=== PATIENT | female | born 1985 | race Caucasian/White ===

== ENCOUNTER 2017-07-10 05:55 | Inpatient (IN) | payer BC ==
[2017-07-10 06:43] VITALS: BMI 28.8
[2017-07-10] MEDS ORDERED: Ibuprofen 800 MG TAB PO PRN (06:58)
[2017-07-10] MEDS ORDERED: Promethazine HCl 25 MG/ML VIAL IM PRN (06:58)
[2017-07-10] MEDS ORDERED: HYDROcodone/Acetaminophen 5/325 mg Tablet PO PRN ×2 (06:58)
[2017-07-10] MEDS ORDERED: Lidocaine 1% (PF) 30 ML VIAL SC PRN (06:58)
--- NOTE | 2017-07-10 07:03 | PDOC.LDHP ---
Labor and Delivery H&P HPI: 32 yo primip at 40.6 weeks who was scheduled for induction this pm, arrives with CTX. no LOF. Patient of Dr Lindy Perez. Dr Perez made aware of her arrival by me. Current gestational age (weeks): 40 (6) Dating criteria: last menstrual period Current complications: none Abnormal US findings: No Current medications: none Allergies/Adverse Reactions: Allergies Allergy/AdvReac Type Severity Reaction Status Date / Time azithromycin Allergy Verified 07/10/17 06:44 Social history: none - Physical Exam Vital signs reviewed and normal: yes Heart: RRR Abdomen: gravid FHT: category 1 [place] contractions every: Q5-7 minutes - Vaginal Exam cm dilated: 3 Effacement: 50% Station: -2 - Assessment L&D Assessment: term patient in labor - Plan Plan: admit to L&D, labor augmentation if indicated, informed consent obtained, other (DX: Late full term . Unknown GBS as record not in L&D. Dr Perez to send. For now, no GBS risk factors. Pain control. Admit, pitocin if needed.)
[2017-07-10] MEDS: Lactated Ringer's 1,000 ML IV SCH ×3 (07:30→15:51)
[2017-07-10 07:43] LABS: Hematocrit 38.9 % (36.0-47.0); Mean Platelet Volume 5.9 fL (7.4-10.4); Red Blood Cell (RBC) Count 4.34 mill/uL (4.20-5.40); White Blood Cell (WBC) Count 14.3 thou/uL (4.8-10.8)
[2017-07-10] MEDS ORDERED: Fentanyl 4 mcg/Marc 0.1% Cadd 100 ML ONE (08:43)
[2017-07-10] MEDS ORDERED: diphenhydrAMINE 50 MG/ML VIAL IVP PRN (09:24)
[2017-07-10] MEDS ORDERED: ePHEDrine/0.9% NaCl/PF SYRINGE 50 mg/10 ml SLOW IVP PRN (09:24)
[2017-07-10] MEDS ORDERED: Ondansetron HCl/PF 4 MG/2 ML Vial IVP PRN (09:24)
[2017-07-10] MEDS ORDERED: Lactated Ringer's 500 ML IV PRN (09:24)
[2017-07-10] MEDS ORDERED: Acetaminophen 325 MG TAB PO PRN (09:24)
[2017-07-10] MEDS ORDERED: Naloxone HCl 0.4 mg/ml Vial IVP PRN ×2 (09:24)
[2017-07-10] MEDS ORDERED: Eucerin (Mineral Oil/Petrolatum,White) 30 gm Jar TOP PRN (09:24)
[2017-07-10] MEDS ORDERED: Communication Order-Pharmacy FS SCH (09:30)
[2017-07-10] MEDS: Ondansetron HCl/PF 4 MG/2 ML Vial IVP PRN ×2 (09:46→16:36)
[2017-07-10] MEDS: LR 500 ML/Oxytocin 10 units 500 ML IV SCH ×2 (10:14→19:09)
[2017-07-10] MEDS: Fentanyl 4mcg/Marcaine 0.1% Cassette 100 ML EPIDURAL SCH ×2 (14:57→21:20)
[2017-07-10] MEDS: Promethazine HCl 25 MG/ML VIAL IM PRN ×2 (17:12→21:11)
[2017-07-10] MEDS ORDERED: Lidocaine 1% (PF) 30 ML VIAL ONE (23:09)
[2017-07-10] MEDS ORDERED: LR / Pitocin 40 units/1000 ml 1,000 ML ONE (23:09)
[2017-07-11] MEDS: LR / Pitocin 40 units/1000 ml 1,000 ML IV PRN ×2 (00:49→02:54)
[2017-07-11] MEDS ORDERED: Bupivacaine/Epinephrine 0.25% 30 ML VIAL ONE (01:00)
[2017-07-11] MEDS ORDERED: Lidocaine 2% PF 5 ML VIAL ONE (01:00)
[2017-07-11] MEDS ORDERED: ePHEDrine/0.9% NaCl/PF SYRINGE 50 mg/10 ml ONE (01:00)
[2017-07-11] MEDS ORDERED: Ibuprofen 800 MG TAB PO PRN (03:24)
[2017-07-11] MEDS ORDERED: HYDROcodone/Acetaminophen 5/325 mg Tablet PO PRN ×2 (03:24)
[2017-07-11] MEDS ORDERED: Lidocaine 1% (PF) 30 ML VIAL SC PRN (03:24)
[2017-07-11] MEDS ORDERED: Lanolin Ointment 7 GM TUBE TOP PRN (03:24)
[2017-07-11] MEDS ORDERED: Misoprostol 200 MCG TAB PR PRN (03:24)
[2017-07-11] MEDS ORDERED: Preparation H Ointment 28 GM TUBE PR PRN (03:24)
[2017-07-11] MEDS ORDERED: Milk Of Magnesia 30 ML UDCUP PO PRN (03:24)
[2017-07-11] MEDS ORDERED: LR / Pitocin 40 units/1000 ml 1,000 ML IV PRN (03:24)
[2017-07-11] MEDS ORDERED: Zolpidem Tartrate 5 MG TAB PO PRN (03:24)
[2017-07-11] MEDS ORDERED: Acetaminophen 500 MG TAB PO PRN (03:24)
[2017-07-11] MEDS ORDERED: LR / Pitocin 40 units/1000 ml 1,000 ML IV SCH (03:24)
[2017-07-11] MEDS ORDERED: Ondansetron HCl/PF 4 MG/2 ML Vial IVP PRN ×2 (03:24)
[2017-07-11] MEDS ORDERED: Bisacodyl 10 MG SUPP PR PRN (03:24)
[2017-07-11] MEDS ORDERED: Benzocaine/Menthol 20-0.5% 60 ML CAN TOP PRN (03:24)
[2017-07-11] MEDS ORDERED: LR 500 ML/Oxytocin 10 units 500 ML IV SCH (03:24)
[2017-07-11] MEDS ORDERED: Promethazine HCl 25 MG/ML VIAL IM PRN (03:24)
[2017-07-11] MEDS ORDERED: Acetaminophen/Codeine 30-300mg Tablet PO PRN ×2 (03:24)
[2017-07-11] MEDS: LR 500 ML/Oxytocin 10 units 500 ML IV SCH (03:42)
[2017-07-11] MEDS: Lactated Ringer's 1,000 ML IV SCH ×3 (03:42→19:33)
[2017-07-11] MEDS ORDERED: Docusate Calcium (SURFAK) 240 MG CAP PO SCH (03:45)
[2017-07-11] MEDS: Misoprostol 100 MCG TAB VAG SCH ×5 (04:13→19:33)
[2017-07-11] MEDS: Ibuprofen 800 MG TAB PO SCH ×3 (04:26→21:32)
[2017-07-11] MEDS: Prenatal Vitamin 1 TAB PO SCH ×2 (09:39→09:40)
[2017-07-11] MEDS: Ferrous Sulfate 325 MG TAB PO SCH ×2 (09:39→18:15)
[2017-07-11] MEDS: Docusate Calcium (SURFAK) 240 MG CAP PO SCH ×2 (09:40→21:32)
[2017-07-12] MEDS: Misoprostol 100 MCG TAB VAG SCH ×3 (04:31→09:30)
[2017-07-12] MEDS: Lactated Ringer's 1,000 ML IV SCH (04:32)
[2017-07-12] MEDS: Ibuprofen 800 MG TAB PO SCH ×3 (06:20→22:01)
[2017-07-12] MEDS: LR 500 ML/Oxytocin 10 units 500 ML IV SCH (09:30)
[2017-07-12] MEDS: Ferrous Sulfate 325 MG TAB PO SCH ×2 (09:31→22:01)
[2017-07-12] MEDS: Docusate Calcium (SURFAK) 240 MG CAP PO SCH ×2 (09:31→22:01)
[2017-07-13] MEDS: Lactated Ringer's 1,000 ML IV SCH ×3 (06:19→06:22)
[2017-07-13] MEDS: Misoprostol 100 MCG TAB VAG SCH ×3 (06:19→09:25)
[2017-07-13] MEDS: LR 500 ML/Oxytocin 10 units 500 ML IV SCH (06:22)
[2017-07-13] MEDS: Ibuprofen 800 MG TAB PO SCH (06:23)
[2017-07-13 07:48] VITALS: BP 102/64; TEMP 99
[2017-07-13] MEDS: Ferrous Sulfate 325 MG TAB PO SCH (09:24)
[2017-07-13] MEDS: Prenatal Vitamin 1 TAB PO SCH (09:56)
[2017-07-13] MEDS: Docusate Calcium (SURFAK) 240 MG CAP PO SCH (09:56)
== END 2017-07-13 13:15 | disposition home or self-care (01) | DRG 775 ==
LOC: L&D/OP 05:55 → L&D 07:25 → 3SW 07-11 03:19
PROVIDERS: ADMIT Family Medicine; ATTEND Family Medicine
PROC: 10907ZC Drainage of Amniotic Fluid, Therapeutic from Products of Conception, Via Natural or Artificial Opening (ICD-10-PCS; principal; 2017-07-10)
PROC: 10E0XZZ Delivery of Products of Conception, External Approach (ICD-10-PCS; 2017-07-11)
PROC: 0HQ9XZZ Repair Perineum Skin, External Approach (ICD-10-PCS; 2017-07-11)
DX: O48.0 Post-term pregnancy (principal); O70.0 First degree perineal laceration during delivery; Z37.0 Single live birth; Z3A.41 41 weeks gestation of pregnancy
CPT/HCPCS: 85027; 86780; 87340; J2001; J2405; J2550; J7120